=== PATIENT | female | born 1960 | race Caucasian/White ===

== ENCOUNTER 2021-04-24 07:33 | Day surgery (SDC) | payer OTHER ==
[2021-04-20 11:25] VITALS: BMI 42.4
[~2021-04-24 07:33] MED LIST: ACETAMINOPHEN TAB 500 MG TAB PO PRN; GABAPENTIN 300 MG CAP PO PRN; LIDOCAINE 1% (10MG/ML) FOR IV START INTRADERMA PRN; MELOXICAM 7.5 MG TAB PO PRN; ONDANSETRON 4 MG/2 ML VIAL IVP ONE; Pre Op ABX Message 1 EACH MISC MISCELLANE ONE; ROPIVACAINE/EPI/CLONIDINE/KET 50 ML SYRINGE MISCELLANE PRN; TRANEXAMIC ACID 1,000 MG in SODIUM CHLORIDE 0.9% 100 ML IVPB PRN; VANCOMYCIN 2,000 MG in SODIUM CHLORIDE 0.9% 500 ML 500 ML IVPB PRN
[2021-04-24 08:57] LABS: Glucose,Whole Blood 200 mg/dL (75-99)
[2021-04-24] MEDS: LACTATED RINGERS 1,000 ML IV SCH (09:06)
[2021-04-24] MEDS ORDERED: fentaNYL (PF) 50 MCG/ML 2 ML AMP ONE (09:17)
[2021-04-24] MEDS ORDERED: MIDAZOLAM 2 MG/2 ML VIAL ONE (09:17)
[2021-04-24] MEDS ORDERED: SODIUM CHLORIDE 0.9% 100 ML BAG ONE (09:17)
[2021-04-24] MEDS ORDERED: PROPOFOL 10 MG/ML 20 ML VIAL IV ONE (09:17)
[2021-04-24] MEDS ORDERED: TRANEXAMIC ACID 1,000 MG/10 ML VIAL ONE (09:17)
[2021-04-24] MEDS ORDERED: KETAMINE 10 MG/ML 20 ML VIAL ONE (09:17)
[2021-04-24] MEDS ORDERED: ceFAZolin 1,000 MG in SODIUM CHLORIDE 0.9% 1,000 ML IRRIGATION ONE (10:03)
--- NOTE | 2021-04-24 11:24 | P.OP ---
Date of Procedure: 04/24/21 Preoperative Diagnosis: Severe osteoarthritis right hip Postoperative Diagnosis: Severe osteoarthritis right hip Procedure(s) Performed: Right total hip arthroplasty with a direct anterior approach Implants: [employer] Polarstem standard size 6 [employer] R3, 3 hole hemispherical acetabular shell, 48 mm [employer] Reflection 6.5 mm cancellus screw, 20 mm 2 [employer] R3, XLPE 20 acetabular liner [employer]hew Oxinium femoral head 32 m, +8 All components were press-fit. The articulation is Oxinium on polyethylene. Anesthesia: spinal Surgeon: Wilmer Ocampo Rope Cutter #1: Eris Chodwary Estimated Blood Loss (ml): 200 (64 mL returned with Cell Saver) Pathology: other (Femoral head) Condition: stable Disposition: PACU Indications for Procedure: After failure of conservative treatment we discussed the surgical and nonsurgical treatment options at length. Patient wishes to proceed with a total hip arthroplasty with a direct anterior approach. Complications specific to this procedure were discussed at length, including but not limited to infection, leg length discrepancy, dislocation, nerve injury, and fracture. Covid-19 was also discussed at length with the patient, and they are aware of the current policies and procedures. The patient was given the option of delaying surgery, but they elect to proceed knowing these risks. Patient is aware of all these complications and informed consent was obtained Operative Findings: The operative findings are consistent with severe osteoarthritis of the right hip Description of Procedure: Patient was seen and evaluated in the preoperative area and the consent was reviewed. The operative site was marked with a skin marker. The patient was then brought to the operating room and given preoperative antibiotics intravenously. 1 g of Tranexamic acid was also given intravenously. A spinal anesthetic was administered by the anesthesia department. The patient was then placed on the [place] table with the bony prominences well-padded. The hip area was then prepped with a ChloraPrep solution and draped in the usual sterile fashion. A universal timeout was then performed, which confirmed the patient's name, surgical site, ALLERGIES, and procedure being performed on the consent. Next the incision site was located at 1 cm distal and 2 cm lateral to the anterior superior iliac spine. The skin and subcutaneous tissues were sharply incised. Incision was carefully dissected down to the fascia overlying the tensor fascia anu muscle. This fascia was then incised in line with the incision. Care was taken to stay laterally in order to avoid injuring the lateral femoral cutaneous nerve. Next, using blunt finger dissection, the tensor fascia anu muscle was dissected off its investing fascia. The muscle was then carefully retracted laterally with a cobra retractor over the lateral neck of the femur. Next, the circumflex vessels were identified and cauterized using the AquaMantis device. The anterior hip capsule was then exposed. The capsule was then opened and an inverted T fashion. Cobra retractors were then placed intracapsularly. The retractors were maintained intracapsular throughout the procedure. The proximal femur was then visualized. Fluoroscopic x-rays were then taken in order to evaluate the preoperative leg lengths. A small amount of traction was placed on the leg. The femoral neck was then osteotomized appropriate level above the lesser trochanter. A small wedge of bone was then removed from the remaining femoral head. Next, using a corkscrew the femoral head was removed from the acetabulum. On gross visual inspection, the femoral head had complete loss of articular cartilage and multiple periarticular osteophytes. The femoral head was then measured. Attention was then turned to the acetabulum. The acetabulum was exposed and any remaining labrum was excised. Sequential reaming of the acetabulum was performed using fluoroscopic guidance until there was a good bed of bleeding cancellus bone. When the appropriate size was reached, a trial was then placed. The position and fit of the trial was checked with fluoroscopy. The trial was then removed. Then, using fluoroscopic guidance, the final implant was impacted at 20 of anteversion and 40 of abduction, and fully seated in the acetabulum. 2 screws were then placed in the acetabulum. Again fluoroscopy was used to check position of the screws. Next, the liner was then impacted, with a 20 elevated liner located in the anterior superior quadrant. Component locking was confirmed. Attention was then directed to the femur. With the aid of the [place] table, the femur was externally rotated to approximately 130, extended, and adducted under the opposite leg. A side hook was then placed under the proximal femur, and the side hook elevator was used to elevate the proximal femur while releasing the capsule. Retractors were then placed. A capsular release was performed, as well as a release of the conjoined tendon, which afforded excellent visualization of the proximal femur. Next, a box osteotome was used to lateralize the proximal femur. A spare hand carding was then used to locate the femoral canal. Sequential broaching was then performed with appropriate size which afforded excellent fixation in the proximal femur. A trial was then placed with appropriate head and neck, and the hip was gently reduced with the aid of the [place] table. Fluoroscopy was then used to check position of the components, as well as to ensure equal leg lengths. The hip was then gently dislocated and the trials were then removed. Final implants were then impacted and the hip was again reduced. Final fluoroscopic x-rays confirmed that the components were in anatomic position, as well as equal leg lengths. The hip was also taken through range of motion, and found to be stable. The hip was then copiously irrigated with antibiotic solution with pulsatile lavage. The hip was then irrigated with Irrisept solution. The soft tissues were then injected with a ropivacaine solution, which consisted of 246.25 mg of ropivacaine, 0.5 mg of epinephrine, 30 mg of Toradol, 80 g of clonidine, and 48.45 mL of sterile water, for a total of 100 mL of fluid injected. A second dose of 1 g of Tranexamic acid was also given intravenously. Any blood collected by Cell Saver was then returned to the patient at this time. The fascia was then closed with 2-0 strata fix suture. The subcutaneous tissue was closed with 3-0 Vicryl. The subcuticular tissue was closed with 3-0 strata fix suture. The skin was then closed with Exofin skin glue. After the glue and dried, and Optifoam silver impregnated dressing was applied. The patient was then transferred to the recovery room in stable condition. The front office assistant LAZARO Doyle was required due to the complexity of surgery, and the need for skilled surgical product sales consultant for positioning, draping, exposure, retraction, and closure of the wound.
--- NOTE | 2021-04-24 11:37 | FL ---
Fluoroscopy History: TOTAL RT ANTERIOR HIP TOTAL RT ANTERIOR HIP . 57 SEC FL TIME. 3 PICS UNDER HIP REQUEST
--- NOTE | 2021-04-24 11:38 | XR ---
EXAMINATION TYPE: XR Hip Limited RT DATE OF EXAM: 04/24/2021 CLINICAL HISTORY: Postoperative evaluation TECHNIQUE: Fluoroscopic views of the right hip was submitted. FINDINGS: Noted are changes of total hip arthroplasty with femoral and acetabular components appearin g well seated. Alignment is anatomic. Postsurgical soft tissue changes are evident. IMPRESSION: Satisfactory postoperative alignment
[2021-04-24] MEDS ORDERED: NALOXONE 0.4 MG/ML 1 ML VIAL IV PRN (12:01)
[2021-04-24] MEDS ORDERED: ONDANSETRON 4 MG/2 ML VIAL IVP PRN (12:01)
[2021-04-24] MEDS ORDERED: MAGNESIUM HYDROXIDE 2,400 MG/10 ML CUP PO PRN (12:01)
[2021-04-24] MEDS: fentaNYL (PF) 50 MCG/ML 2 ML AMP IV PRN ×2 (12:03→12:11)
[2021-04-24] MEDS ORDERED: diphenhydrAMINE 50 MG/ML 1 ML VIAL ONE (12:08)
[2021-04-24] MEDS ORDERED: diphenhydrAMINE 50 MG/ML 1 ML VIAL IVP ONE (12:13)
--- NOTE | 2021-04-24 12:14 | XR ---
EXAMINATION TYPE: XR Hip Limited RT DATE OF EXAM: 04/24/2021 CLINICAL HISTORY: Postoperative evaluation TECHNIQUE: Single portable view of the right hip was submitted. FINDINGS: Noted are changes of total hip arthroplasty with femoral and acetabular components appearin g well seated. Alignment is anatomic. Postsurgical soft tissue changes are evident. IMPRESSION: Satisfactory postoperative alignment
[2021-04-24] MEDS ORDERED: LACTATED RINGERS 1,000 ML IV ONE (12:30)
[2021-04-24 12:35] LABS: Glucose,Whole Blood 225 mg/dL (75-99)
[2021-04-24] MEDS ORDERED: INSULIN ASPART (NovoLOG) 100 UNIT/ML VIAL SQ ONE (12:38)
[2021-04-24] MEDS: SODIUM CHLORIDE 0.9% 1,000 ML IV SCH (16:34)
[2021-04-24 16:43] LABS: Glucose,Whole Blood 232 mg/dL (75-99)
[2021-04-24] MEDS: INSULIN ASPART (NovoLOG) 100 UNIT/ML VIAL SQ SCH ×2 (17:14→22:01)
[2021-04-24 17:43] VITALS: RESP 18
--- NOTE | 2021-04-24 18:09 | P.CONS ---
History of Present Illness - Reason for Consult Consult date: 04/24/21 - History of Present Illness 60 years old female who has past medical history significant for hypertension hyperlipidemia hypothyroidism and gastroesophageal reflux disease anxiety depression diabetes mellitus COPD and ongoing tobacco abuse osteoarthritis, she presented to the hospital for elective surgery total right hip arthroplasty by orthopedic, patient tolerated the procedure well and postprocedure pain is well- controlled no signs of chest pain headache shortness of breath. Hospital medicine was consulted for medical management. Review of Systems 14 point review of system was done in detail and is negative except as above in HPI. Past Medical History Past Medical History: COPD, Diabetes Mellitus, GERD/Reflux, Osteoarthritis (OA), Thyroid Disorder Additional Past Medical History / Comment(s): used to take BP med in past, not currently, elevated liver enzymes, hemochromatosis History of Any Multi-Drug Resistant Organisms: None Reported Past Surgical History: Section, Cholecystectomy, Heart Catheterization, Orthopedic Surgery, Tonsillectomy Additional Past Surgical History / Comment(s): total thyroidectomy, ORIF left ankle & then hardware removed, colonoscopies, EGD's Past Anesthesia/Blood Transfusion Reactions: No Reported Reaction Past Psychological History: Anxiety, Depression Smoking Status: Current every day smoker Past Alcohol Use History: Occasional Additional Past Alcohol Use History / Comment(s): smoker for 40+years, 1-2ppd down to less than 1ppd Past Drug Use History: None Reported Medications and Allergies Home Medications Medication Instructions Recorded Confirmed Type Acetaminophen [Tylenol Extra 500 mg PO Q6H PRN 04/20/21 04/20/21 History Strength] Albuterol Nebulized [Ventolin 2.5 mg INHALATION Q6H PRN 04/20/21 04/20/21 History Nebulized] Aspirin 81 mg PO DAILY 04/20/21 04/20/21 History Calcium Carbonate/Vitamin D3 1 each PO DAILY 04/20/21 04/20/21 History [Calcium 600 mg-D3 20 mcg (800 unit)] Folate 1 tab PO DAILY 04/20/21 04/23/21 History INSULIN LISPRO (HumaLOG) [humaLOG] 14 - 16 units SQ AC-BRKFST 04/20/21 04/20/21 History INSULIN LISPRO (HumaLOG) [humaLOG] 14 - 20 units SQ AC-SUPPER 04/20/21 04/20/21 History Insulin Glargine,Hum.rec.anlog 50 unit SQ HS 04/20/21 04/20/21 History [Lantus Solostar Pen] Levothyroxine Sodium [Synthroid] 200 mcg PO DAILY 04/20/21 04/20/21 History Mometasone/Formoterol [Dulera 200 1 puff PO BID 04/20/21 04/20/21 History Mcg-5 Mcg Inhaler] Omeprazole Magnesium [PriLOSEC OTC] 20 mg PO DAILY 04/20/21 04/20/21 History PARoxetine [Paxil] 20 mg PO DAILY 04/20/21 04/20/21 History Sennosides [Senokot] 8.6 mg PO BID 04/20/21 04/20/21 History Tiotropium [place] [Spiriva] 1 cap INHALATION DAILY 04/20/21 04/20/21 History Turmeric Root Extract [Turmeric] 500 mg PO DAILY 04/20/21 04/20/21 History metFORMIN HCL [Glucophage] 1,000 mg PO QAM 04/20/21 04/20/21 History Mupirocin 2% Oint [Bactroban 2% 1 applic NASAL BID 04/23/21 04/23/21 History Oint] Aspirin 325 mg PO BID #60 tab 04/24/21 Rx Ondansetron [Zofran] 4 mg PO Q6HR PRN #30 tab 04/24/21 Rx Sennosides-Docusate Sodium 1 tab PO BID PRN #60 tablet 04/24/21 Rx [Senokot-S] traMADol HCl [Ultram] 50 mg PO Q6H PRN #56 tab 04/24/21 Rx Allergies Allergy/AdvReac Type Severity Reaction Status Date / Time hydrocodone [From Vicodin] Allergy Rash/Hives Verified 04/24/21 07:57 penicillin V [From Veetids] Allergy Rash/Hives Verified 04/24/21 07:57 Physical Exam Vitals: Vital Signs Temp Pulse Resp BP BP Pulse Ox 04/24/21 17:30 82 161/61 04/24/21 15:50 136/84 04/24/21 15:34 98.5 F 73 18 124/73 04/24/21 14:00 63 16 150/74 99 04/24/21 13:15 59 L 14 156/78 98 04/24/21 12:45 62 14 151/83 99 04/24/21 12:15 79 16 133/72 96 04/24/21 12:00 73 14 97/79 93 L 04/24/21 11:53 98.0 F 74 16 140/80 95 04/24/21 08:07 98.0 F 72 16 151/73 95 Intake and Output 04/24/21 04/24/21 04/24/21 06:59 14:59 22:59 Intake Total 1501.5 Output Total 200 Balance 1301.5 Intake: IV 1501.5 Output: Estimated Blood Loss 200 Other: Weight 128.6 kg 128.6 kg General: non toxic, no acute distress, hard of hearing Head: atraumatic, normocephalic, symmetric Eyes: no lid lesion], anicteric sclera Mouth: no lip lesion, mucus membranes moist Abdominal: Nondistended Ext: Patient incision area covered with surgical dressing, no signs of surrounding erythema swelling of fluctuance graining discharge Neuro: Alert oriented to time place and person, exam grossly nonfocal, hard of hearing Psych: Mood and affect appropriate, patient not so certain Skin exam: No rashes no jaundice. Results Labs: Abnormal Lab Results - Last 24 Hours (Table) 04/24/21 04/24/21 04/24/21 Range/Units 08:49 12:33 16:43 POC Glucose (mg/dL) 200 H 225 H 232 H (75-99) mg/dL Assessment and Plan Assessment: Diabetes mellitus Continue home dose of insulin regimen [place] hold metformin while inpatient Continue insulin sliding scale. Hypothyroidism Continue home dose of Synthroid. Gastroesophageal reflux disease Continue omeprazole. Anxiety and depression Continue Paxil History of COPD Continue Spiriva and dulera inhaler Patient status post right total hip arthroplasty done on 04/24/2021 Elective surgery for osteoarthritis of the hip joint Postoperative DVT prophylaxis and pain management per orthopedics recommendation DVT prophylaxis: Currently on aspirin 325 twice a day CODE STATUS: Full code Discharge/next site of care: Home with home health care and next 1 to is patient medically stable to be discharged
[2021-04-24] MEDS: traMADol 50 MG TAB PO PRN (18:15)
[2021-04-24] MEDS ORDERED: ACETAMINOPHEN TAB 500 MG TAB PO PRN (18:41)
[2021-04-24] MEDS ORDERED: ALBUTEROL NEBULIZED 2.5 MG/3 ML INHALATION PRN (18:41)
[2021-04-24 20:49] LABS: Glucose,Whole Blood 197 mg/dL (75-99)
[2021-04-24] MEDS ORDERED: INSULIN DETEMIR (LEVEMIR) 100 UNIT/ML SYR SQ SCH (21:00)
[2021-04-24] MEDS ORDERED: SENNOSIDES-DOCUSATE SODIUM 1 EACH TAB PO SCH (21:00)
[2021-04-24] MEDS: SYMBICORT 160-4.5 MCG INHALER INHALATION SCH (21:02)
[2021-04-24] MEDS: ASPIRIN 325 MG TAB PO SCH (22:00)
[2021-04-25] MEDS: traMADol 50 MG TAB PO PRN (00:17)
[2021-04-25] MEDS: MORPHINE SULFATE 4 MG/ML SYRINGE IVP PRN ×2 (03:12→09:04)
[2021-04-25] MEDS: SODIUM CHLORIDE 0.9% 1,000 ML IV SCH (05:46)
[2021-04-25] MEDS ORDERED: LEVOTHYROXINE 100 MCG TAB PO SCH (06:30)
[2021-04-25 07:15] LABS: Glucose,Whole Blood 183 mg/dL (75-99)
[2021-04-25] MEDS ORDERED: PANTOPRAZOLE 40 MG TABLET PO SCH (07:30)
[2021-04-25 07:37] VITALS: BP 96/57; PULSE 74; TEMP 99.2
[2021-04-25] MEDS: LACTATED RINGERS 1,000 ML IV SCH (08:16)
[2021-04-25] MEDS: IPRATROPIUM 0.5 MG/2.5 ML NEBU INHALATION SCH ×2 (08:25→12:14)
[2021-04-25] MEDS: SYMBICORT 160-4.5 MCG INHALER INHALATION SCH (08:25)
[2021-04-25] MEDS ORDERED: FOLIC ACID 1 MG TAB PO SCH (09:00)
[2021-04-25] MEDS ORDERED: PARoxetine 20 MG TAB PO SCH (09:00)
[2021-04-25] MEDS ORDERED: SENNOSIDES 8.6 MG TAB PO SCH (09:00)
[2021-04-25] MEDS: ASPIRIN 325 MG TAB PO SCH (09:04)
[2021-04-25] MEDS: INSULIN ASPART (NovoLOG) 100 UNIT/ML VIAL SQ SCH ×2 (09:04→12:22)
[2021-04-25 09:34] LABS: Basophils # (A) 0.03 X 10*3/uL (0.00-0.10); Basophils % (A) 0.3 %; Eosinophils # (A) 0.06 X 10*3/uL (0.04-0.35); Eosinophils % (A) 0.6 %; HCT 35.7 % (37.2-46.3); HGB 11.6 g/dL (12.0-15.0); Lymphocytes # (A) 1.34 X 10*3/uL (0.90-5.00); Lymphocytes % (A) 13.5 %; MCH 30.4 pg (27.0-32.0); MCHC 32.5 g/dL (32.0-37.0); MCV 93.7 fL (80.0-97.0); Mean Platelet Volume 11.5 fL (9.5-12.2); Monocytes # (A) 0.71 X 10*3/uL (0.20-1.00); Monocytes % (A) 7.1 %; Neutrophils # (A) 7.77 X 10*3/uL (1.80-7.70); Neutrophils % (A) 78.1 %; Platelet Count 186 X 10*3/uL (140-440); RBC 3.81 X 10*6/uL (4.10-5.20); RDW 14.2 % (11.5-14.5); WBC 9.95 X 10*3/uL (4.50-10.00)
[2021-04-25 10:05] LABS: African American GFR (CKD) 84.8 (60.0-200.0); Anion Gap 12.7 mmol/L (10.00-18.00); BUN/Creat Ratio 12.71 Ratio (12.00-20.00); Blood Urea Nitrogen 11.1 mg/dL (9.0-27.0); Calcium 8.4 mg/dL (8.7-10.3); Carbon Dioxide 22.8 mmol/L (20.0-27.5); Non-African American GFR(CKD) 73.1 (60.0-200.0); Potassium 4.2 mmol/L (3.5-5.5)
[2021-04-25] MEDS ORDERED: HYDROcodone/APAP 5-325MG 1 EACH TAB PO PRN (10:38)
[2021-04-25 12:02] LABS: Glucose,Whole Blood 189 mg/dL (75-99)
--- NOTE | 2021-04-25 20:57 | P.PN ---
Subjective Progress Note Date: 04/25/21 (patient seen at 1015) Patient is a 60-year-old female past medical history is significant for hy pertension, dyslipidemia, hypothyroidism, and diabetes mellitus type 2. Patient underwent right total hip arthroplasty, direct anterior approach with no acute postoperative complications. Excoriation seen and examined at bedside. She reports that the tramadol did not control her pain and she required morphine. Nursing indicates that there is a ALLERGY to Fox. However patient does not recall having an ALLERGY to hydrocodone, Fox, or Vicodin. She states that her only ALLERGY is to penici llin V. She states she took Tylenol 3 for years without difficulty. She would like to try Fox for her pain. She states her diabetes is fairly well controlled and she follows her diet, for a few days prior to admission she was not following her diet. We reiterated the importance of following her diet closely and ensuring that her blood sugars are controlled as this will improve her wound healing and decrease risk of infection. Patient is in agreement. She has any current chest pain, shortness breath, nausea, vomiting. All questions answered. General: non toxic, no distress, appears at stated age Derm: warm, dry Head: atraumatic, normocephalic, symmetric Eyes: EOMI, no lid lag, anicteric sclera Mouth: no lip lesion, mucus membranes moist Cardiovascular: S1S2 reg, no murmur, positive posterior tibial pulse bilateral, Lungs: CTA bilateral, no rhonchi, no rales , no accessory muscle use Abdominal: soft, nontender to palpation, no guarding, no appreciable organomegaly Ext: no gross muscle atrophy, no edema, no contractures Neuro: CN II-XI grossly intact, no focal neuro deficits Psych: Alert, oriented, appropriate affect Intractable pain -Trial of Fox -Patient tolerated well and was given a prescription for this on discharge. Diabetes mellitus type 2 -Resume home insulin and metformin on discharge Hypothyroidism -Synthroid GERD -PPI Anxiety and depression -Paxil COPD -Spiriva and Dulera Medically optimized for discharge. Thank you for allowing us to participate in the care of this pleasant patient. Do not hesitate to contact us with questions. Someone can be reached from the [facility] [place] hospitalist group all hours of the day at [phone] or via perfect serve. Objective - Vital Signs Vital signs: Vital Signs Temp 99.2 F 04/25/21 07:36 Pulse 74 04/25/21 07:36 Resp 18 04/25/21 07:36 BP 96/57 04/25/21 07:36 Pulse Ox 90 L 04/25/21 07:36 Intake & Output 04/25/21 04/25/21 04/26/21 06:59 18:59 06:59 Other: # Voids 2 - Labs CBC & Chem 7: 04/25/21 06:27 04/25/21 06:27 Labs: Abnormal Lab Results - Last 24 Hours (Table) 04/25/21 04/25/21 04/25/21 Range/Units 06:27 06:27 07:14 RBC 3.81 L (4.10-5.20) X 10*6/uL Hgb 11.6 L (12.0-15.0) g/dL Hct 35.7 L (37.2-46.3) % Neutrophils # 7.77 H (1.80-7.70) X 10*3/uL Glucose 165 H (70-110) mg/dL POC Glucose (mg/dL) 183 H (75-99) mg/dL Calcium 8.4 L (8.7-10.3) mg/dL 04/25/21 Range/Units 12:00 RBC (4.10-5.20) X 10*6/uL Hgb (12.0-15.0) g/dL Hct (37.2-46.3) % Neutrophils # (1.80-7.70) X 10*3/uL Glucose (70-110) mg/dL POC Glucose (mg/dL) 189 H (75-99) mg/dL Calcium (8.7-10.3) mg/dL
== END 2021-04-25 14:53 | disposition home or self-care (01) ==
LOC: OR 07:33 → 4SSUR 11:45 → OR 04-25 14:53
PROVIDERS: ATTEND Orthopaedic Surgery
DX: M16.11 Unilateral primary osteoarthritis, right hip (principal); E11.9 Type 2 diabetes mellitus without complications; E03.9 Hypothyroidism, unspecified; E78.5 Hyperlipidemia, unspecified; F41.9 Anxiety disorder, unspecified; F17.210 Nicotine dependence, cigarettes, uncomplicated; G47.33 Obstructive sleep apnea (adult) (pediatric); F32.9 Major depressive disorder, single episode, unspecified; Z79.4 Long term (current) use of insulin; J44.9 Chronic obstructive pulmonary disease, unspecified; Z79.899 Other long term (current) drug therapy; Z88.0 Allergy status to penicillin; Z88.6 Allergy status to analgesic agent; Z88.5 Allergy status to narcotic agent; Z20.822 Contact with and (suspected) exposure to COVID-19
CPT/HCPCS: 97161; 97535; 97165; 86900; 86901; 80048; 85025; 86850; 88300; 87635; 73501; 27130; C1776; J2250; J3370; J2270; J1200; J0690 ×2; J2405; J3010; J2704